=== PATIENT | female | born 1940 | race Caucasian/White ===

== ENCOUNTER 2021-04-19 13:22 | Outpatient (CLI) | payer MEDICARE | END 2021-04-19 13:23 | disposition home or self-care (01) | LOC: CSHULT 13:22 | PROVIDERS: ATTEND Family Medicine | DX: E03.9 Hypothyroidism, unspecified (principal); E04.1 Nontoxic single thyroid nodule | CPT/HCPCS: 76536 ==

== ENCOUNTER 2022-09-20 14:22 | Outpatient (CLI) | payer MEDICARE | END 2022-09-20 14:23 | disposition home or self-care (01) | LOC: CSHULT 14:22 | PROVIDERS: ATTEND Family Medicine | DX: E04.1 Nontoxic single thyroid nodule (principal) | CPT/HCPCS: 76536 ==